=== PATIENT | female | born 1990 | race Caucasian/White ===

== ENCOUNTER 2017-09-30 07:51 | Day surgery (SDC) | payer OTHER ==
[~2017-09-30] VITALS: Ht 165.1 cm; Wt 72.6 kg
[2017-09-30] MEDS ORDERED: ASPI-1677 PO (10:06)
[2017-09-30] MEDS ORDERED: [UNRECOGNIZED DRUG - CODE] PO (10:06)
[2017-09-30] MEDS ORDERED: fentaNYL 0.05 MG/ML VIAL ONE (10:36)
[2017-09-30] MEDS ORDERED: MIDAZOLAM 2 MG/2 ML VIAL ONE (10:36)
[2017-09-30] MEDS ORDERED: MIDAZOLAM 2 MG/2 ML VIAL IVP ONE (12:15)
== END 2017-09-30 11:55 | disposition home or self-care (01) ==
LOC: MDS 07:51 → MMU 07:51 → MDS 11:55
PROVIDERS: ATTEND Internal Medicine Gastroenterology
DX: K21.9 Gastro-esophageal reflux disease without esophagitis (principal); K31.89 Other diseases of stomach and duodenum; Z90.49 Acquired absence of other specified parts of digestive tract; Z91.011 Allergy to milk products; Z79.82 Long term (current) use of aspirin; Z79.899 Other long term (current) drug therapy
CPT/HCPCS: 36415; 43239; 86677; J2250; J3010